=== PATIENT | female | born 1970 | race Caucasian/White ===

== ENCOUNTER 2017-05-31 09:38 | Emergency (ER) | payer MEDICARE, MEDICAID ==
[~2017-05-31] VITALS: Ht 165.1 cm; Wt 57.0 kg
[~2017-05-31 09:38] MED LIST: BUTA1CAP PO; CALC1TAB87 PO; DIAZ10 PO; DICY10 PO; DULO20 PO; EXCETAB PO; LISI10TA3 PO; LYRI150C PO; MONT10TA2 PO; MORP1TAB24 PO; PROM25TA5 PO; PROP10TA6 PO; RISP1 PO; TIZA4CAP3 PO; ZOFR8TAB4 SL
[2017-05-31 09:41] VITALS: BP 145/94; PULSE 76; RESP 15; TEMP 98.4; O2SAT 96
[2017-05-31] MEDS ORDERED: MORP1TAB26 PO (10:06)
[2017-05-31] MEDS ORDERED: LYRI200C PO (10:06)
[2017-05-31] MEDS ORDERED: PROM1SUP7 RECTAL (10:06)
--- NOTE | 2017-05-31 11:29 | PD ---
HPI Chief Complaint: Chest Pain Time Seen by Provider: 11:29 Travel History International Travel<30 days: No Contact w/Intl Traveler<30days: No Traveled to known affect area: No History of Present Illness HPI 46-year-old female presents the emergency Department with multiple complaints including question broken left great toe, history of upper respiratory symptoms including cough, sore throat, head congestion, and chest congestion. She states she was improving and now has been worsening in the last couple of days. Patient states vomiting last week. But none recently. No diarrhea. No abdominal pain. She also concerned about her blood pressure. Sensorimotor blood pressure low she has no headache. Patient states she was a smoker but recently quit. Patient is allergic to epinephrine, erythromycin, and penicillin. PFSH Past Medical History Arthritis: Yes Asthma: No Autoimmune Disease: No Blood Disorders: Yes (PORPHYRIA ) Anxiety: Yes Depression: Yes Heart Rhythm Problems: Yes Cancer: No Cardiovascular Problems: Yes (SLIGHT MITRAL VALVE REGURGITATION) High Cholesterol: No Chemotherapy: No Chest Pain: Yes Congestive Heart Failure: No COPD: No Cerebrovascular Accident: Yes (STROKE 2004, TIA 2013) Diabetes: No Diminished Hearing: No Endocrine: No Gastrointestinal Disorders: Yes (REFLUX, DISFUNCTION OF SPHINCTER OF JACINTA) GERD: Yes Glaucoma: No Genitourinary: No Headaches: Yes (CHRONIC) Hepatitis: No Hiatal Hernia: Yes Herniated Disk: Yes (C5-7) Hypertension: Yes Immune Disorder: No Implanted Vascular Access Dvce: No Kidney Stones: No Medical other: Yes (PORPHYRIA-INTERMITTENT ACUTE EPISODES CAUSING NAUSEA VOMITING) Musculoskeletal: Yes (TRELL SHOULDER PAIN, CERVICAL HERNIATED DISCSX2, HERNIATED L5-S1) Neurologic: Yes (STROKE 2004, TIA 2013, MIGRAINES, BRACHIAL ISSUES LEFT SHOULDER) Psychiatric: Yes (ANXIETY) Reproductive: Yes (ENDOMETRIOSIS hysterectomy 11/02/15) Respiratory: Yes (ASTHMA) Immunizations Current: Yes Migraines: Yes Myocardial Infarction: Yes (OCTOBER - 2004) Radiation Therapy: No Renal Failure: No Seizures: Yes (LAST SEIZURE 2006) Sickle Cell Disease: No Sleep Apnea: No Thyroid Disease: No Ulcer: No PNEUMOCCOCAL Vaccine (Year): 2010 ?: Unknown Menopausal: Yes : 4 Para: 4 Miscarriage: 0 : 0 Tubal Ligation: Yes (2002) Past Surgical History Abdominal Surgery: Yes (CHOLECYSTECTOMY 2004) AICD: No Appendectomy: No Body Medical Devices: SCREWS LEFT RING FINTURE, CERVICAL HARDWARE Cardiac Surgery: No Section: Yes (4) Cholecystectomy: Yes (2004) Ear Surgery: No Endocrine Surgery: No Eye Surgery: Yes ( CHILD) Genitourinary Surgery: No Gynecologic Surgery: Yes (C SECTION X4, TUBAL LIGATION 2002) Hysterectomy: Yes (11/06/15) Joint Replacement: No Neurologic Surgery: Yes (ANTERIOR C5-C6,C6-7 Discectomy and Fusion,) Oral Surgery: No Pacemaker: No Thoracic Surgery: No Other Surgery: Yes (hysterectomy 11/02/15) Social History Alcohol Use: No Tobacco Use: No Substance Use: No Allergies-Medications (Allergen,Severity, Reaction): Coded Allergies: erythromycin base (Unverified Allergy, Severe, Anaphylaxis, 05/31/17) ANAPHYLAXIS penicillin G (Unverified Allergy, Severe, Anaphylaxis, 05/31/17) ANAPHYLAXIS epinephrine (Unverified Adverse Reaction, Severe, STATES SHOULD AVOID , ) PT HAD STROKE AFTER GETTING EPINEPRINE IN ER Reported Meds & Prescriptions Reported Meds & Active Scripts Active Prednisone 20 Mg Tab 20 Mg PO BID 5 Days Ventolin Hfa 18 GM Inh (Albuterol Sulfate) 90 Mcg/Act Aer 2 Puff INH Q4-6H PRN Azithromycin 250 Mg Tab 250 Mg PO DIRECTED Take 2 tabs (500 mg) on day 1 then 1 tab daily x 4 days. Reported Phenergan Supp (Promethazine HCl) 25 Mg Supp 25 Mg RECTAL Q4H PRN Lyrica (Pregabalin) 200 Mg Cap 200 Mg PO TID Morphine ER (Morphine Sulfate) 60 Mg Tab 60 Mg PO TID Lyrica (Pregabalin) 150 Mg Cap 150 Mg PO TID Tizanidine (Tizanidine HCl) 4 Mg Cap 4 Mg PO TID Zofran Odt (Ondansetron Odt) 8 Mg Tab 8 Mg SL Q12HR Valium (Diazepam) 10 Mg Tab 10 Mg PO BID PRN Singulair (Montelukast Sodium) 10 Mg Tab 10 Mg PO HS Propranolol (Propranolol HCl) 10 Mg Tab 10 Mg PO DAILY Lisinopril 10 Mg Tab 10 Mg PO BID Fioricet (Qwggzyhybt-Ccikidvbskaag-Wsubqvti) 50-300-40 Mg Cap 1 Cap PO Q4H PRN Bentyl (Dicyclomine HCl) 10 Mg Cap 10 Mg PO QID Review of Systems Except as stated in HPI: all other systems reviewed are Neg General / Constitutional: Positive: Fever, Chills (last week.) Eyes: No: Visual changes HENT: Positive: Headaches, Sore Throat, Rhinitis, Rhinorrhea, Congestion, Earache, No: Vertigo, Lightheadedness, Nosebleed, Neck Stiffness, Neck Pain, Masses, Gingival Bleeding, Dental Difficulties, Ear Discharge Cardiovascular: No: Chest Pain or Discomfort Respiratory: Positive: Cough, Shortness of Breath, Wheezing, No: Sneezing, Orthopnea, Hemoptysis, Night Sweats, Pleuritic Pain Gastrointestinal: Positive: Nausea (last week), Vomiting (last week), Loss of Appetite, No: Diarrhea, Abdominal Pain Genitourinary: No: Urgency, Frequency, Dysuria, Pelvic Pain, Flank Pain, Discharge Musculoskeletal: No: Pain Skin: No Rash Neurologic: No: Weakness Psychiatric: No: Depression Endocrine: No: Polydipsia Hematologic/Lymphatic: No: Easy Bruising Physical Exam Narrative GENERAL: Patient appears somewhat anxious but otherwise no acute distress. SKIN: Warm and dry. Color. Normal turgor. Patient has bruising along the left base of the great toe. HEAD: Atraumatic. Normocephalic. EYES: Pupils equal and round. No scleral icterus. No injection or drainage. ENT: No nasal bleeding or discharge. Mucous membranes pink and moist. Pharynx shows some mild cobblestoning and erythematous but no significant findings otherwise. TMs are clear bilaterally. No sinus tenderness to palpation. NECK: Trachea midline. Supple nontender without lymphadenopathy. CARDIOVASCULAR: Regular rate and rhythm. RESPIRATORY: No accessory muscle use. Coarse breath sounds to auscultation. Breath sounds equal bilaterally. GASTROINTESTINAL: Abdomen soft, non-tender, nondistended. Hepatic and splenic margins not palpable. MUSCULOSKELETAL: Extremities without clubbing, cyanosis, or edema. No obvious deformities. Patient is tenderness at the left great toe base. No deformity. NEUROLOGICAL: Awake and alert. No obvious cranial nerve deficits. Motor grossly within normal limits. Five out of 5 muscle strength in the arms and legs. Normal speech. PSYCHIATRIC: Appropriate mood and affect; insight and judgment normal. Data Data Last Documented VS Vital Signs Date Time Temp Pulse Resp B/P (MAP) Pulse Ox O2 Delivery O2 Flow Rate FiO2 05/31/17 12:18 65 14 134/84 (101) 98 Room Air 05/31/17 09:41 98.4 Orders Orders Electrocardiogram (05/31/17 11:34) B-Type Natriuretic Peptide (05/31/17 11:34) Ckmb (Isoenzyme) Profile (05/31/17 11:34) Complete Blood Count With Diff (05/31/17 11:34) Comprehensive Metabolic Panel (05/31/17 11:34) Magnesium (Mg) (05/31/17 11:34) Prothrombin Time / Inr (Pt) (05/31/17 11:34) Act Partial Throm Time (Ptt) (05/31/17 11:34) Troponin I (05/31/17 11:34) Chest, Single Ap (05/31/17 11:34) Ecg Monitoring (05/31/17 11:34) Bilateral Bp Monitoring (05/31/17 11:34) Iv Access Insert/Monitor (05/31/17 11:34) Oximetry (05/31/17 11:34) Oxygen Administration (05/31/17 11:34) Aspirin Chew (Aspirin Chew) (05/31/17 11:45) Sodium Chloride 0.9% Flush (Ns Flush) (05/31/17 11:45) Metoprolol Tartrate Inj (Lopressor Inj) (05/31/17 11:45) Sodium Chlorid 0.9% 500 Ml Inj (Ns 500 M (05/31/17 11:45) Foot, Complete (Tom3dcv) (05/31/17 11:34) Ice/Cold Pack (05/31/17 11:34) Lactic Acid (05/31/17 11:34) Lipase (05/31/17 11:34) CKMB (05/31/17 11:45) CKMB% (05/31/17 11:45) Splint Or Brace Apply/Monitor (05/31/17 13:33) Labs Laboratory Tests Test 05/31/17 11:45 05/31/17 12:00 White Blood Count 12.4 TH/MM3 Red Blood Count 4.39 MIL/MM3 Hemoglobin 13.6 GM/DL Hematocrit 40.4 % Mean Corpuscular Volume 91.9 FL Mean Corpuscular Hemoglobin 31.0 PG Mean Corpuscular Hemoglobin Concent 33.7 % Red Cell Distribution Width 12.8 % Platelet Count 382 TH/MM3 Mean Platelet Volume 8.8 FL Neutrophils (%) (Auto) 73.0 % Lymphocytes (%) (Auto) 16.6 % Monocytes (%) (Auto) 7.8 % Eosinophils (%) (Auto) 1.9 % Basophils (%) (Auto) 0.7 % Neutrophils # (Auto) 9.1 TH/MM3 Lymphocytes # (Auto) 2.1 TH/MM3 Monocytes # (Auto) 1.0 TH/MM3 Eosinophils # (Auto) 0.2 TH/MM3 Basophils # (Auto) 0.1 TH/MM3 CBC Comment DIFF FINAL Differential Comment Prothrombin Time 10.7 SEC Prothromb Time International Ratio 1.0 RATIO Activated Partial Thromboplast Time 29.0 SEC Blood Urea Nitrogen 8 MG/DL Creatinine 0.85 MG/DL Random Glucose 93 MG/DL Total Protein 7.5 GM/DL Albumin 4.1 GM/DL Calcium Level 9.1 MG/DL Magnesium Level 2.6 MG/DL Alkaline Phosphatase 94 U/L Aspartate Amino Transf (AST/SGOT) 20 U/L Alanine Aminotransferase (ALT/SGPT) 22 U/L Total Bilirubin 0.6 MG/DL Sodium Level 133 MEQ/L Potassium Level 3.8 MEQ/L Chloride Level 98 MEQ/L Carbon Dioxide Level 25.5 MEQ/L Anion Gap 10 MEQ/L Estimat Glomerular Filtration Rate 72 ML/MIN Total Creatine Kinase 226 U/L Creatine Kinase MB 4.5 NG/ML Creatine Kinase MB % 2.0 % Troponin I LESS THAN 0.02 NG/ML B-Type Natriuretic Peptide 28 PG/ML Lipase 50 U/L Lactic Acid Level 0.9 mmol/L MDM Medical Decision Making Medical Screen Exam Complete: Yes Emergency Medical Condition: Yes Differential Diagnosis Pressure infection. Bronchitis. Pneumonia. Cardiac syndrome. Possible fractured left toe. Narrative Course Patient is felt to be medically stable at time of exam. Chest x-ray and x-ray of the left toes ordered. EKG is performed showing normal sinus rhythm without ST changes. Laboratory medically CBC, CMP, lactic acid, cardiac panel. Chest x-ray shows no acute findings. X-ray of the left foot shows no acute findings per radiologist. All labs are currently within normal limits except for slight leukocytosis of 12.4, creatinine of 226, CK-MB of 4.5, troponin is negative at 0.02. BNP is normal at 28. Lactic acid is normal 0.9. Lipase is normal at 50. Sodium slightly low at 133. Patient will be discharged home on azithromycin Dosepak as directed. Patient also given prednisone 20 mg twice a day 5 days. Patient is given albuterol metered-dose inhaler 2 puffs every 4-6 hours when necessary. Patient is to follow-up with her primary care physician if symptoms continue to worsen as needed. Postop shoe is placed on the left foot for comfort. Diagnosis Primary Impression: Acute wheezy bronchitis Additional Impression: Contusion of left foot including toes Qualified Codes: S90.32XA - Contusion of left foot, initial encounter; S90.122A - Contusion of left lesser toe(s) without damage to nail, initial encounter Referrals: Primary Care Physician Patient Instructions: General Instructions Additional Instructions: Patient will be discharged home on azithromycin Dosepak as directed. Patient also given prednisone 20 mg twice a day 5 days. Patient is given albuterol metered-dose inhaler 2 puffs every 4-6 hours when necessary. Patient is to follow-up with her primary care physician if symptoms continue to worsen as needed. Postop shoe is placed on the left foot for comfort. Med/Other Pt SpecificInfo: Prescription(s) given Scripts Prednisone (Prednisone) 20 Mg Tab 20 MG PO BID for 5 Days, #10 TAB 0 Refills Prov: Andrew Beltran MD 05/31/17 Albuterol 18 GM Inh (Ventolin Hfa 18 GM Inh) 90 Mcg/Act Aer 2 PUFF INH Q4-6H Y for SHORTNESS OF BREATH, #1 INHALER 0 Refills Prov: Andrew Beltran MD 05/31/17 Azithromycin (Azithromycin) 250 Mg Tab 250 MG PO DIRECTED for Infection, #6 TAB 0 Refills Take 2 tabs (500 mg) on day 1 then 1 tab daily x 4 days. Prov: Andrew Beltran MD 05/31/17 Disposition: 01 DISCHARGE HOME Condition: Stable Amos [place] May 31, 2017 11:29
[2017-05-31] MEDS ORDERED: SODIUM CHLORIDE 0.9% FLUSH 10 ML FLUSH IVF PRN (11:45)
[2017-05-31] MEDS ORDERED: SODIUM CHLORID 0.9% 500 ML INJ 500 ML IV ONE (11:45)
[2017-05-31] MEDS ORDERED: ASPIRIN 81 MG CHEW TAB PO ONE (11:45)
[2017-05-31] MEDS: METOPROLOL TARTRATE 5 MG/5 ML VIAL IVS SCH ×3 (11:50→11:55)
[2017-05-31 12:04] VITALS: BP_SYST 156; BP_SYST 159; BP_DIAS 101; BP_DIAS 103; PULSE 81; RESP 18; O2SAT 99
[2017-05-31 12:04] LABS: AUTOMATED NEUTROPHIL # 9.1 TH/MM3 (1.8-7.7); BASOPHIL # 0.1 TH/MM3 (0-0.2); BASOPHIL % 0.7 % (0.0-2.0); EOSINOPHIL # 0.2 TH/MM3 (0-0.4); EOSINOPHIL % 1.9 % (0.0-4.0); HEMATOCRIT 40.4 % (35.0-46.0); HEMO FLAGS DIFF FINAL; LYMPH % 16.6 % (9.0-44.0); LYMPHOCYTE # 2.1 TH/MM3 (1.0-4.8); MEAN CELL VOLUME 91.9 FL (80.0-100.0); MEAN CORPUSCULAR HGB CONC 33.7 % (32.0-36.0); MONO % 7.8 % (0.0-8.0); PLATELET COUNT 382 TH/MM3 (150-450); RED BLOOD COUNT 4.39 MIL/MM3 (4.00-5.30); RED CELL DISTRIBUTION WIDTH 12.8 % (11.6-17.2); WHITE BLOOD COUNT 12.4 TH/MM3 (4.0-11.0)
[2017-05-31 12:10] LABS: PROTHROMBIN TIME - PATIENT 10.7 SEC (9.8-11.6)
[2017-05-31 12:18] VITALS: BP 134/84; PULSE 65; RESP 14; O2SAT 98
--- NOTE | 2017-05-31 12:19 | RADRPT ---
EXAM DATE/TIME: 05/31/2017 12:16 [facility] COMPARISON: CHEST SINGLE AP, November 04, 2015, 5:06. INDICATIONS : Chest pain and cough. MEDICAL HISTORY : Hypertension. Gastroesophageal reflux disease. Hernia, hiatal. SURGICAL HISTORY : section. Tubal ligation.Hysterectomy.LAVH, lysis of adhesions, bilateral salpingectomy, and cystoscopy ENCOUNTER: Initial ACUITY: 2 weeks PAIN SCORE: 1/10 LOCATION: Bilateral chest FINDINGS: A single view of the chest demonstrates the lungs to be symmetrically aerated without evidence of mas s, infiltrate or effusion. Stable calcified granuloma in the left lower lung. The cardiomediastinal contours are unremarkable and stable. Osseous structures are intact and stable. No significant xiao es. CONCLUSION: No acute disease. No significant change has occurred. Lewis De La Rosa MD on May 31, 2017 at 12:17 Board Certified Radiologist. This report was verified electronically.
--- NOTE | 2017-05-31 12:20 | RADRPT ---
EXAM DATE/TIME: 05/31/2017 12:12 [facility] COMPARISON: No previous studies available for comparison. INDICATIONS : Left foot pain, first digit. Door closed on it. MEDICAL HISTORY : Hypertension. Gastroesophageal reflux disease. Hernia, hiatal. SURGICAL HISTORY : section. Tubal ligation.Hysterectomy.LAVH, lysis of adhesions, bilateral salpingectomy, and cystoscopy ENCOUNTER: Initial ACUITY: 2 days PAIN SCORE: 3/10 LOCATION: Left foot FINDINGS: Three view examination of the left foot demonstrates no soft tissue swelling, dislocation, or fractur e. The tarsal bones appear intact. The interphalangeal and metatarsophalangeal joints are intact. The calcaneus is intact. Bony mineralization is normal. CONCLUSION: Normal examination for a patient of this age. Lewis De La Rosa MD on May 31, 2017 at 12:18 Board Certified Radiologist. This report was verified electronically.
[2017-05-31 12:26] LABS: ANION GAP 10 MEQ/L (5-15); AST (GOT) 20 U/L (15-37); BICARBONATE 25.5 MEQ/L (21.0-32.0); BLOOD UREA NITROGEN 8 MG/DL (7-18); CHLORIDE 98 MEQ/L (98-107); GLOMERULAR FILTRATION RATE 72 ML/MIN (>89); MAGNESIUM 2.6 MG/DL (1.5-2.5); POTASSIUM 3.8 MEQ/L (3.5-5.1); SODIUM (NA) 133 MEQ/L (136-145)
[2017-05-31 12:27] LABS: ALT (GPT) 22 U/L (10-53)
[2017-05-31 12:31] LABS: ALKALINE PHOSPHATASE 94 U/L (45-117); CREATINE KINASE 226 U/L (26-192); TOTAL BILIRUBIN ADULT 0.6 MG/DL (0.2-1.0)
[2017-05-31 12:43] LABS: CKMB 4.5 NG/ML (0.5-3.6)
[2017-05-31] MEDS ORDERED: AZIT250T3 PO (13:35)
[2017-05-31] MEDS ORDERED: VENTAER INH (13:35)
[2017-05-31] MEDS ORDERED: PRED20 PO (13:35)
--- NOTE | 2017-05-31 21:14 | EKG ---
Date Performed: 05/31/2017 Time Performed: 10:00:53 PTAGE: 46 years EKG: Sinus rhythm WITH SINUS ARRHYTHMIA NORMAL ECG PREVIOUS TRACING : 12/08/2014 20.41 Compared to prior tracing no significant change DOCTOR: Reyes Monroy Interpretating Date/Time 05/31/2017 21:12:11
== END 2017-05-31 14:06 | disposition home or self-care (01) ==
LOC: NEPC 09:38
DX: J20.9 Acute bronchitis, unspecified (principal); S90.32XA Contusion of left foot, initial encounter; S90.122A Contusion of left lesser toe(s) without damage to nail, initial encounter; I10 Essential (primary) hypertension; X58.XXXA Exposure to other specified factors, initial encounter; Z79.899 Other long term (current) drug therapy; Z87.891 Personal history of nicotine dependence
CPT/HCPCS: 71010; 73630; 80053; 82550; 82552; 83605; 83690; 83735; 83880; 84484; 85025; 85610; 85730; 93005; 96361; 96374; 99285; J7040; L3260

== ENCOUNTER 2017-07-06 11:54 | Observation (INO) | payer MEDICARE, MEDICAID ==
[2017-07-06] VITALS (9 sets, daily range): BP systolic 90–144; BP diastolic 51–93; PULSE 73–83; RESP 16–18; TEMP 97.9–98.7; O2SAT 96–98
[~2017-07-06] VITALS: Ht 165.1 cm; Wt 55.0 kg
[~2017-07-06 11:54] MED LIST changes: +AZIT250T3 PO; -CALC1TAB87 PO; -DULO20 PO; -EXCETAB PO; +LYRI200C PO; -MORP1TAB24 PO; +MORP1TAB26 PO; +PRED20 PO; +PROM1SUP7 RECTAL; -PROM25TA5 PO; -RISP1 PO; +VENTAER INH
--- NOTE | 2017-07-06 12:29 | PD ---
HPI Chief Complaint: seizure Time Seen by Provider: 12:01 Travel History International Travel<30 days: No Contact w/Intl Traveler<30days: No Traveled to known affect area: No History of Present Illness HPI 46 years old female complains of recurrent seizures. Patient states that she had recurrent seizure for the past year. Patient has been seen by neurologist Dr. Rondon. Patient states that she had EEG done and she thought it was normal. Patient was put on seizure medication Briviact recently. patient's on Diastat when necessary. Patient states that she has headache. Patient denies any visual change. Patient denies any neck pain. Patient denied any chest pain or shortness of breath. Patient denies abdominal pain. Patient denies any focal weakness or numbness of extremity. Patient states that she has multiple seizure episodes daily for the past week. Patient states that she had 4 seizure episodes this morning. Patient's friend states that patient's seizure is generalized tonic-clonic seizure lasting several minutes. No report of bladder or bowel incontinence. Patient has post ictal state after the seizure. PFSH Past Medical History Arthritis: Yes Asthma: No Autoimmune Disease: No Blood Disorders: Yes (PORPHYRIA ) Anxiety: Yes Depression: Yes Heart Rhythm Problems: Yes Cancer: No Cardiovascular Problems: Yes (SLIGHT MITRAL VALVE REGURGITATION) High Cholesterol: No Chemotherapy: No Chest Pain: Yes Congestive Heart Failure: No COPD: No Cerebrovascular Accident: Yes (STROKE 2004, TIA 2013) Diabetes: No Diminished Hearing: No Endocrine: No Gastrointestinal Disorders: Yes (REFLUX, DISFUNCTION OF SPHINCTER OF J[place]INTA) GERD: Yes Glaucoma: No Genitourinary: No Headaches: Yes (CHRONIC) Hepatitis: No Hiatal Hernia: Yes Herniated Disk: Yes (C5-7) Hypertension: Yes Immune Disorder: No Implanted Vascular Access Dvce: No Kidney Stones: No Musculoskeletal: Yes (TRELL SHOULDER PAIN, CERVICAL HERNIATED DISCSX2, HERNIATED L5-S1) Neurologic: Yes (STROKE 2004, TIA 2013, MIGRAINES, BRACHIAL ISSUES LEFT SHOULDER) Psychiatric: Yes (ANXIETY) Reproductive: Yes (ENDOMETRIOSIS hysterectomy 11/02/15) Respiratory: Yes (ASTHMA) Immunizations Current: Yes Migraines: Yes Myocardial Infarction: Yes (OCTOBER - 2004) Radiation Therapy: No Renal Failure: No Seizures: Yes (LAST SEIZURE 2006) Sickle Cell Disease: No Sleep Apnea: No Thyroid Disease: No Ulcer: No PNEUMOCCOCAL Vaccine (Year): 2010 Menopausal: Yes : 4 Para: 4 Miscarriage: 0 : 0 Tubal Ligation: Yes (2002) Past Surgical History Abdominal Surgery: Yes (CHOLECYSTECTOMY 2004) AICD: No Appendectomy: No Body Medical Devices: SCREWS LEFT RING FINTURE, CERVICAL HARDWARE Cardiac Surgery: No Section: Yes () Cholecystectomy: Yes (2004) Ear Surgery: No Endocrine Surgery: No Eye Surgery: Yes ( CHILD) Genitourinary Surgery: No Gynecologic Surgery: Yes (C SECTION X4, TUBAL LIGATION 2002) Hysterectomy: Yes (11/06/15) Joint Replacement: No Neurologic Surgery: Yes (ANTERIOR C5-C6,C6-7 Discectomy and Fusion,) Oral Surgery: No Pacemaker: No Thoracic Surgery: No Other Surgery: Yes (hysterectomy 11/02/15) Social History Alcohol Use: No Tobacco Use: No Substance Use: No Allergies-Medications (Allergen,Severity, Reaction): Coded Allergies: erythromycin base (Unverified Allergy, Severe, Anaphylaxis, 05/31/17) ANAPHYLAXIS penicillin G (Unverified Allergy, Severe, Anaphylaxis, 05/31/17) ANAPHYLAXIS epinephrine (Unverified Adverse Reaction, Severe, STATES SHOULD AVOID , ) PT HAD STROKE AFTER GETTING EPINEPRINE IN ER Reported Meds & Prescriptions Reported Meds & Active Scripts Active Prednisone 20 Mg Tab 20 Mg PO BID 5 Days Ventolin Hfa 18 GM Inh (Albuterol Sulfate) 90 Mcg/Act Aer 2 Puff INH Q4-6H PRN Azithromycin 250 Mg Tab 250 Mg PO DIRECTED Take 2 tabs (500 mg) on day 1 then 1 tab daily x 4 days. Reported Phenergan Supp (Promethazine HCl) 25 Mg Supp 25 Mg RECTAL Q4H PRN Lyrica (Pregabalin) 200 Mg Cap 200 Mg PO TID Morphine ER (Morphine Sulfate) 60 Mg Tab 60 Mg PO TID Lyrica (Pregabalin) 150 Mg Cap 150 Mg PO TID Tizanidine (Tizanidine HCl) 4 Mg Cap 4 Mg PO TID Zofran Odt (Ondansetron Odt) 8 Mg Tab 8 Mg SL Q12HR Valium (Diazepam) 10 Mg Tab 10 Mg PO BID PRN Singulair (Montelukast Sodium) 10 Mg Tab 10 Mg PO HS Propranolol (Propranolol HCl) 10 Mg Tab 10 Mg PO DAILY Lisinopril 10 Mg Tab 10 Mg PO BID Fioricet (Nsegousrnz-Enbsrapmttzyx-Jlgokbuv) 50-300-40 Mg Cap 1 Cap PO Q4H PRN Bentyl (Dicyclomine HCl) 10 Mg Cap 10 Mg PO QID Review of Systems General / Constitutional: No: Fever Eyes: No: Visual changes HENT: No: Headaches Cardiovascular: No: Chest Pain or Discomfort Respiratory: No: Shortness of Breath Gastrointestinal: No: Abdominal Pain Genitourinary: No: Dysuria Musculoskeletal: No: Pain Skin: No Rash Neurologic: No: Weakness Psychiatric: No: Depression Endocrine: No: Polydipsia Hematologic/Lymphatic: No: Easy Bruising Physical Exam Narrative GENERAL: Well-nourished, well-developed patient. SKIN: Focused skin assessment warm/dry. HEAD: Normocephalic. EYES: No scleral icterus. No injection or drainage. Pupils 2 mm equal reactive. NECK: Supple, trachea midline. No JVD or lymphadenopathy. No meningismus CARDIOVASCULAR: Regular rate and rhythm without murmurs, gallops, or rubs. RESPIRATORY: Breath sounds equal bilaterally. No accessory muscle use. GASTROINTESTINAL: Abdomen soft, non-tender, nondistended. MUSCULOSKELETAL: No cyanosis, or edema. BACK: Nontender without obvious deformity. No CVA tenderness. Neurologic exam normal. Data Data Last Documented VS Vital Signs Date Time Temp Pulse Resp B/P (MAP) Pulse Ox O2 Delivery O2 Flow Rate FiO2 07/06/17 12:18 97 Room Air 07/06/17 12:18 82 18 07/06/17 11:56 98.3 Orders Orders Complete Blood Count With Diff (07/06/17 12:12) Comprehensive Metabolic Panel (07/06/17 12:12) Urinalysis - C+S If Indicated (07/06/17 12:12) Thyroid Stimulating Hormone (07/06/17 12:12) Iv Access Insert/Monitor (07/06/17 12:12) Ecg Monitoring (07/06/17 12:12) Oximetry (07/06/17 12:12) Drug Screen, Random Urine (07/06/17 12:12) Sodium Chlor 0.9% 1000 Ml Inj (Ns 1000 M (07/06/17 12:15) Ketorolac Inj (Toradol Inj) (07/06/17 12:30) Labs Laboratory Tests Test 07/06/17 12:20 07/06/17 12:30 White Blood Count 9.6 TH/MM3 Red Blood Count 3.98 MIL/MM3 Hemoglobin 13.4 GM/DL Hematocrit 37.6 % Mean Corpuscular Volume 94.6 FL Mean Corpuscular Hemoglobin 33.8 PG Mean Corpuscular Hemoglobin Concent 35.7 % Red Cell Distribution Width 14.0 % Platelet Count 312 TH/MM3 Mean Platelet Volume 8.3 FL Neutrophils (%) (Auto) 52.1 % Lymphocytes (%) (Auto) 29.8 % Monocytes (%) (Auto) 12.4 % Eosinophils (%) (Auto) 4.9 % Basophils (%) (Auto) 0.8 % Neutrophils # (Auto) 5.0 TH/MM3 Lymphocytes # (Auto) 2.9 TH/MM3 Monocytes # (Auto) 1.2 TH/MM3 Eosinophils # (Auto) 0.5 TH/MM3 Basophils # (Auto) 0.1 TH/MM3 CBC Comment DIFF FINAL Differential Comment Blood Urea Nitrogen 11 MG/DL Creatinine 0.90 MG/DL Random Glucose 89 MG/DL Total Protein 7.6 GM/DL Albumin 3.8 GM/DL Calcium Level 8.3 MG/DL Alkaline Phosphatase 109 U/L Aspartate Amino Transf (AST/SGOT) 28 U/L Alanine Aminotransferase (ALT/SGPT) 22 U/L Total Bilirubin 0.2 MG/DL Sodium Level 138 MEQ/L Potassium Level 4.6 MEQ/L Chloride Level 103 MEQ/L Carbon Dioxide Level 28.8 MEQ/L Anion Gap 6 MEQ/L Estimat Glomerular Filtration Rate 67 ML/MIN Thyroid Stimulating Hormone 3rd Gen 1.710 uIU/ML Urine Color YELLOW Urine Turbidity CLEAR Urine pH 7.0 Urine Specific [place] 1.023 Urine Protein TRACE mg/dL Urine Glucose (UA) NEG mg/dL Urine Ketones NEG mg/dL Urine Occult Blood NEG Urine Nitrite NEG Urine Bilirubin NEG Urine Urobilinogen 2.0 MG/DL Urine Leukocyte Esterase NEG Urine RBC LESS THAN 1 /hpf Urine WBC 1 /hpf Urine Mucus MANY /lpf Microscopic Urinalysis Comment CULT NOT INDICATED Urine Opiates Screen NEG Urine Barbiturates Screen NEG Urine Amphetamines Screen NEG Urine Benzodiazepines Screen NEG Urine Cocaine Screen NEG Urine Cannabinoids Screen NEG MDM Medical Decision Making Medical Screen Exam Complete: Yes Emergency Medical Condition: Yes Interpretation(s) 1443 PM. CBC within normal limit. CMP within normal limit. Urine drug screen negative. UA is negative. Differential Diagnosis Differential diagnosis including recurrent seizures, electrolyte imbalance, arrhythmia. Narrative Course 46 years old female with recurrent seizures. Andrew Beltran MD Jul 06, 2017 12:29
[2017-07-06] MEDS ORDERED: KETOROLAC TROMETHAMINE 30 MG/ML (IVP) VIAL IV PUSH ONE (12:30)
[2017-07-06 12:35] LABS: BASOPHIL # 0.1 TH/MM3 (0-0.2); BASOPHIL % 0.8 % (0.0-2.0); EOSINOPHIL # 0.5 TH/MM3 (0-0.4); EOSINOPHIL % 4.9 % (0.0-4.0); HEMATOCRIT 37.6 % (35.0-46.0); HEMO FLAGS DIFF FINAL; LYMPH % 29.8 % (9.0-44.0); LYMPHOCYTE # 2.9 TH/MM3 (1.0-4.8); MEAN CELL VOLUME 94.6 FL (80.0-100.0); MEAN CORPUSCULAR HEMOGLOBIN 33.8 PG (27.0-34.0); MEAN CORPUSCULAR HGB CONC 35.7 % (32.0-36.0); MONO % 12.4 % (0.0-8.0); NEUT % 52.1 % (16.0-70.0); PLATELET COUNT 312 TH/MM3 (150-450); RED BLOOD COUNT 3.98 MIL/MM3 (4.00-5.30); WHITE BLOOD COUNT 9.6 TH/MM3 (4.0-11.0)
[2017-07-06 12:48] LABS: BLOOD, URINE NEG (NEG); COMMENT (UR) CULT NOT INDICATED; CULTURE IF INDICATED CULT NOT INDICATED; GLUCOSE,URINE NEG (NEG); KETONE, URINE NEG (NEG); MUCUS URINE MANY /lpf (OCC); NITRITE,URINE NEG (NEG); URINE COLOR YELLOW (YELLW/STRAW)
[2017-07-06 12:58] LABS: ALT (GPT) 22 U/L (10-53); ANION GAP 6 MEQ/L (5-15); AST (GOT) 28 U/L (15-37); BICARBONATE 28.8 MEQ/L (21.0-32.0); CHLORIDE 103 MEQ/L (98-107); GLOMERULAR FILTRATION RATE 67 ML/MIN (>89); POTASSIUM 4.6 MEQ/L (3.5-5.1); SODIUM (NA) 138 MEQ/L (136-145)
[2017-07-06 13:02] LABS: ALKALINE PHOSPHATASE 109 U/L (45-117); TOTAL BILIRUBIN ADULT 0.2 MG/DL (0.2-1.0)
[2017-07-06 13:03] LABS: BLOOD UREA NITROGEN 11 MG/DL (7-18)
[2017-07-06] MEDS ORDERED: ACETAMINOPHEN 325 MG TAB PO ONE (15:00)
[2017-07-06] MEDS ORDERED: GADODIAMIDE PF 287 MG/ML 10 ML VIAL (for RAD MRI) IVCONTRAST ONE (15:13)
[2017-07-06] MEDS ORDERED: ALBUTEROL SULFATE 90 MCG/ACT HFA 8 GM INHALER INH PRN (15:30)
--- NOTE | 2017-07-06 15:39 | HHI.HP ---
[facility] Sarah Sandoval D.O. Admission Diagnosis recurrent seizure Diagnoses: (1) Recurrent seizures Diagnosis: Principal Chief Complaint: recurrent seizures Travel History International Travel<30 Days: No Contact w/Intl Traveler <30 Da: No Traveled to Known Affected Are: No History of Present Illness patient is a 46 y/o female with history of seizure which was reportedly diagnosed about a year ago presented to ER with recurrent seizures. she's under the care of . she says that she was started on Briviact - however her seizure could not be controlled therefore the dose was increased two days ago. she says that she's having few seizures everyday. seizure was described as grand-mal. she says that she has some ' aura' before the seizures; ' she gets confused and her words are not coming out'. she had another episode of seizure prior to this presentation. she says that she talked to her neurologist today and was advised to come to [facility].she doesn't report any urinary incontinence or tongue-biting but complaining of some headache. of note she says that she was seen at [facility] a few days ago for the same reason; she says that she had a CT head done at the time but she didn't stay for further evaluation. Review of Systems Constitutional: DENIES: Fever, Weight loss, Chills, Night Sweats Eyes: DENIES: Blurred vision, Diplopia, Vision loss, Double Vision Ears, nose, mouth, throat: DENIES: Tinnitus, Vertigo, Throat pain, Epistaxis Respiratory: DENIES: Apneas, Cough, Snoring, Wheezing, Hemoptysis, Sputum production, Shortness of breath Cardiovascular: DENIES: Chest pain, Palpitations, Syncope, Dyspnea on Exertion , PND, Lower Extremity Edema, Orthopnea, Claudication Gastrointestinal: DENIES: Abdominal pain, Black stools, Bloody stools, Constipation, Diarrhea, Nausea, Vomiting, Difficulty Swallowing, Anorexia Genitourinary: DENIES: Urinary frequency, Urgency, Hematuria, Dysuria Musculoskeletal: DENIES: Joint pain, Muscle aches, Stiffness, Joint Swelling Integumentary: DENIES: Rash Neurologic: COMPLAINS OF: Headache, Seizures, DENIES: Abnormal gait, Localized weakness, Paresthesias, Speech Problems, Tremor, Poor Balance Psychiatric: DENIES: Anxiety, Confusion, Mood changes, Depression, Hallucinations, Agitation, Suicidal Ideation, Homicidal Ideation, Delusions Past Family Social History Past Medical History seizure hypertension asthma Past Surgical History / hysterectomy. Reported Medications Prednisone 20 Mg Tab 20 Mg PO BID 5 Days Ventolin Hfa 18 GM Inh (Albuterol Sulfate) 90 Mcg/Act Aer 2 Puff INH Q4-6H PRN Azithromycin 250 Mg Tab 250 Mg PO DIRECTED Take 2 tabs (500 mg) on day 1 then 1 tab daily x 4 days. Reported Phenergan Supp (Promethazine HCl) 25 Mg Supp 25 Mg RECTAL Q4H PRN Lyrica (Pregabalin) 200 Mg Cap 200 Mg PO TID Morphine ER (Morphine Sulfate) 60 Mg Tab 60 Mg PO TID Lyrica (Pregabalin) 150 Mg Cap 150 Mg PO TID Tizanidine (Tizanidine HCl) 4 Mg Cap 4 Mg PO TID Zofran Odt (Ondansetron Odt) 8 Mg Tab 8 Mg SL Q12HR Valium (Diazepam) 10 Mg Tab 10 Mg PO BID PRN Singulair (Montelukast Sodium) 10 Mg Tab 10 Mg PO HS Propranolol (Propranolol HCl) 10 Mg Tab 10 Mg PO DAILY Lisinopril 10 Mg Tab 10 Mg PO BID Fioricet (Uugvoazhfw-Tobiszircdbjg-Dchfiaog) 50-300-40 Mg Cap 1 Cap PO Q4H PRN Bentyl (Dicyclomine HCl) 10 Mg Cap 10 Mg PO QID Allergies: Coded Allergies: erythromycin base (Unverified Allergy, Severe, Anaphylaxis, 05/31/17) ANAPHYLAXIS penicillin G (Unverified Allergy, Severe, Anaphylaxis, 05/31/17) ANAPHYLAXIS epinephrine (Unverified Adverse Reaction, Severe, STATES SHOULD AVOID , ) PT HAD STROKE AFTER GETTING EPINEPRINE IN ER Active Ordered Medications Current Medications Sodium Chloride 1,000 ml @ 125 mls/hr Q8H IV ; Start 07/06/17 at 12:15 Ketorolac Tromethamine (Toradol Inj) 30 mg ONCE ONCE IV PUSH Last administered on 07/06/17t 13:35; Start 07/06/17 at 12:30; Stop 07/06/17 at 12 :31; Status DC Acetaminophen (Tylenol) 650 mg ONCE ONCE PO ; Start 07/06/17 at 15:00; Stop 07/06/17 at 15:15; Status DC Family History seizure ' on her mother's side'. Social History no smoking, drinking or illicit drug abuse. Physical Exam Vital Signs Vital Signs Date Time Temp Pulse Resp B/P (MAP) Pulse Ox O2 Delivery O2 Flow Rate FiO2 07/06/17 12:18 97 Room Air 07/06/17 12:18 82 18 97 Room Air 07/06/17 12:14 80 18 135/93 (107) 97 07/06/17 11:56 98.3 83 16 103/53 (70) 98 Physical Exam GENERAL: This is a well-nourished, well-developed patient, in no apparent distress. SKIN: No rashes, ecchymoses or lesions. Cool and dry. HEAD: Atraumatic. Normocephalic. No temporal or scalp tenderness. EYES: Pupils equal round and reactive. Extraocular motions intact. No scleral icterus. No injection or drainage. ENT: Nose without bleeding, purulent drainage or septal hematoma. Throat without erythema, tonsillar hypertrophy or exudate. Uvula midline. Airway patent. NECK: Trachea midline. No JVD or lymphadenopathy. Supple, nontender, no meningeal signs. CARDIOVASCULAR: Regular rate and rhythm without murmurs, gallops, or rubs. RESPIRATORY: Clear to auscultation. Breath sounds equal bilaterally. No wheezes , rales, or rhonchi. GASTROINTESTINAL: Abdomen soft, non-tender, nondistended. No hepato-splenomegaly , or palpable masses. No guarding. MUSCULOSKELETAL: Extremities without clubbing, cyanosis, or edema. No joint tenderness, effusion, or edema noted. No calf tenderness. Negative Homans sign bilaterally. NEUROLOGICAL: Awake and alert. Cranial nerves II through XII intact. Motor and sensory grossly within normal limits. Five out of 5 muscle strength in all muscle groups. Normal speech. Laboratory Laboratory Tests Test 07/06/17 12:20 07/06/17 12:30 White Blood Count 9.6 Red Blood Count 3.98 Hemoglobin 13.4 Hematocrit 37.6 Mean Corpuscular Volume 94.6 Mean Corpuscular Hemoglobin 33.8 Mean Corpuscular Hemoglobin Concent 35.7 Red Cell Distribution Width 14.0 Platelet Count 312 Mean Platelet Volume 8.3 Neutrophils (%) (Auto) 52.1 Lymphocytes (%) (Auto) 29.8 Monocytes (%) (Auto) 12.4 Eosinophils (%) (Auto) 4.9 Basophils (%) (Auto) 0.8 Neutrophils # (Auto) 5.0 Lymphocytes # (Auto) 2.9 Monocytes # (Auto) 1.2 Eosinophils # (Auto) 0.5 Basophils # (Auto) 0.1 CBC Comment DIFF FINAL Differential Comment Blood Urea Nitrogen 11 Creatinine 0.90 Random Glucose 89 Total Protein 7.6 Albumin 3.8 Calcium Level 8.3 Alkaline Phosphatase 109 Aspartate Amino Transf (AST/SGOT) 28 Alanine Aminotransferase (ALT/SGPT) 22 Total Bilirubin 0.2 Sodium Level 138 Potassium Level 4.6 Chloride Level 103 Carbon Dioxide Level 28.8 Anion Gap 6 Estimat Glomerular Filtration Rate 67 Thyroid Stimulating Hormone 3rd Gen 1.710 Urine Color YELLOW Urine Turbidity CLEAR Urine pH 7.0 Urine Specific Hurley 1.023 Urine Protein TRACE Urine Glucose (UA) NEG Urine Ketones NEG Urine Occult Blood NEG Urine Nitrite NEG Urine Bilirubin NEG Urine Urobilinogen 2.0 Urine Leukocyte Esterase NEG Urine RBC LESS THAN 1 Urine WBC 1 Urine Mucus MANY Microscopic Urinalysis Comment CULT NOT INDICATED Urine Opiates Screen NEG Urine Barbiturates Screen NEG Urine Amphetamines Screen NEG Urine Benzodiazepines Screen NEG Urine Cocaine Screen NEG Urine Cannabinoids Screen NEG Result Diagram: 07/06/17 1220 07/06/17 1220 Caprini VTE Risk Assessment Caprini VTE Risk Assessment: No/Low Risk (score <= 1) Caprini Risk Assessment Model Point Value = 1 Point Value = 2 Point Value = 3 Point Value = 5 Age 41-60 Minor surgery BMI > 25 kg/m2 Swollen legs Varicose veins or History of unexplained or recurrent spontaneous Oral contraceptives or hormone replacement Sepsis (< 1 month) Serious lung disease, including pneumonia (< 1 month) Abnormal pulmonary function Acute myocardial infarction Congestive heart failure (< 1 month) History of inflammatory bowel disease Medical patient at bed rest Age 61-74 Arthroscopic surgery Major open surgery (> 45 min) Laparoscopic surgery (> 45 min) Malignancy Confined to bed (> 72 hours) Immobilizing plaster cast Central venous access Age >= 75 History of VTE Family history of VTE Factor V Leiden Prothrombin [id number] Lupus anticoagulant Anticardiolipin antibodies Elevated serum homocysteine Heparin-induced thrombocytopenia Other congenital or acquired thrombophilia Stroke (< 1 month) Elective arthroplasty Hip, pelvis, or leg fracture Acute spinal cord injury (< 1 month) Prophylaxis Regimen Total Risk Factor Score Risk Level Prophylaxis Regimen 0-1 Low Early ambulation 2 Moderate Order ONE of the following: *Sequential Compression Device (SCD) *Heparin 5000 units SQ BID 3-4 Higher Order ONE of the following medications: *Heparin 5000 units SQ TID *Enoxaparin/Lovenox 40 mg SQ daily (WT < 150 kg, CrCl > 30 mL/min) *Enoxaparin/Lovenox 30 mg SQ daily (WT < 150 kg, CrCl > 10-29 mL/min) *Enoxaparin/Lovenox 30 mg SQ BID (WT < 150 kg, CrCl > 30 mL/min) AND/OR *Sequential Compression Device (SCD) 5 or more Highest Order ONE of the following medications: *Heparin 5000 units SQ TID (Preferred with Epidurals) *Enoxaparin/Lovenox 40 mg SQ daily (WT < 150 kg, CrCl > 30 mL/min) *Enoxaparin/Lovenox 30 mg SQ daily (WT < 150 kg, CrCl > 10-29 mL/min) *Enoxaparin/Lovenox 30 mg SQ BID (WT < 150 kg, CrCl > 30 mL/min) AND *Sequential Compression Device (SCD) Assessment and Plan Assessment and Plan A/P - recurrent seizures- states that she's been on Briviact with no improvement. seizure precautions/ ativan as needed/ obtain EEG and consult neurology. obtain the report of CT head that was done at [facility] few days ago. --hypertension; resume home meds -asthma with no exacerbation; resume home meds -chronic neck/back pain; continue pain control- Discussed Condition With ER physician and the patient. Tang Laureano MD Jul 06, 2017 15:39
[2017-07-06] MEDS ORDERED: ONDANSETRON HCL 4 MG/2 ML VIAL IV PUSH PRN (15:45)
[2017-07-06] MEDS: SODIUM CHLOR 0.9% 1000 ML INJ 1,000 ML IV SCH ×2 (16:39→20:15)
[2017-07-06] MEDS: PREGABALIN 75 MG CAP PO SCH (17:34)
[2017-07-06] MEDS ORDERED: PREGABALIN 100 MG CAP PO SCH (18:00)
[2017-07-06] MEDS: MONTELUKAST SODIUM 10 MG TAB PO SCH (21:00)
[2017-07-06] MEDS: LISINOPRIL 10 MG TAB PO SCH (21:00)
[2017-07-06] MEDS: ACETAMINOPHEN 325 MG TAB PO PRN (22:22)
[2017-07-07] VITALS (8 sets, daily range): BP systolic 92–145; BP diastolic 54–90; PULSE 66–110; RESP 16–18; TEMP 98–99.8; O2SAT 95–99
[2017-07-07] MEDS: SODIUM CHLOR 0.9% 1000 ML INJ 1,000 ML IV SCH ×3 (04:15→20:15)
[2017-07-07] MEDS: LORazepam 2 MG/ML VIAL IV PUSH PRN ×3 (04:45→10:04)
[2017-07-07] MEDS: ACETAMINOPHEN 325 MG TAB PO PRN ×2 (05:00→09:14)
[2017-07-07] MEDS ORDERED: BRIV1TAB7 PO (08:33)
[2017-07-07] MEDS: LISINOPRIL 10 MG TAB PO SCH (09:11)
[2017-07-07] MEDS: PROPRANOLOL HCL 10 MG TAB PO SCH (09:11)
[2017-07-07] MEDS: PREGABALIN 75 MG CAP PO SCH ×3 (09:11→17:21)
--- NOTE | 2017-07-07 09:56 | HHI.PR ---
Subjective Remarks Reports episodes of jaw clenching possible seizure activity overnight. Patient reports migraine headache, requesting Fioricet, or Excedrin. Denies any chest pain or shortness of breath. Denies any loss of bowel or bladder function. Patient states that she had a three-day home EEG which was negative for seizure activity. Has never had an EEG positive for seizure activity. Multiple medications have been tried. Objective Vital Signs Date Time Temp Pulse Resp B/P (MAP) Pulse Ox O2 Delivery O2 Flow Rate FiO2 07/07/17 08:33 98.4 73 16 116/63 (80) 99 07/07/17 05:25 92/64 (73) 07/07/17 03:42 98.7 66 18 98/54 (69) 95 07/06/17 23:35 98.7 74 18 98/51 (67) 97 07/06/17 22:25 116/66 (83) 07/06/17 20:15 118/78 (91) Automatic Cuff 07/06/17 19:46 98.4 82 18 90/53 (65) 96 07/06/17 17:07 07/06/17 17:02 97.9 73 18 135/88 (104) 97 07/06/17 15:00 82 18 144/81 (102) 96 Room Air 07/06/17 12:18 97 Room Air 07/06/17 12:18 82 18 97 Room Air 07/06/17 12:14 80 18 135/93 (107) 97 07/06/17 11:56 98.3 83 16 103/53 (70) 98 I/O 07/06/17 07/06/17 07/06/17 07/07/17 07/07/17 07/07/17 07:00 15:00 23:00 07:00 15:00 23:00 Output Total 200 ml Balance -200 ml Output Urine Total 200 ml # Voids 2 Result Diagram: 07/06/17 1220 07/06/17 1220 Objective Remarks GENERAL: Patient appears comfortable on exam. Alert, oriented. SKIN: Warm and dry. HEAD: Normocephalic. EYES: No scleral icterus. No injection or drainage. NECK: Supple, trachea midline CARDIOVASCULAR: Regular rate and rhythm without murmurs, gallops, or rubs. RESPIRATORY: Breath sounds equal bilaterally. No accessory muscle use. GASTROINTESTINAL: Abdomen soft, non-tender, nondistended. MUSCULOSKELETAL: No cyanosis, or edema. BACK: Nontender without obvious deformity. No CVA tenderness. A/P Assessment and Plan //recurrent seizures- states that she's been on Briviact with no improvement. seizure precautions/ ativan as needed/ obtain EEG and consult neurology. obtain the report of CT head that was done at [facility] few days ago. = Continue Ativan as needed for seizures. Patient with multiple negative EEGs in the past. I question these are real seizures versus pseudoseizures. Have discussed with Dr. Garcia, who will see the patient. //hypertension. Blood pressure low with systolics in the 90s. Will decrease lisinopril 5 mg only once a day. Continue to monitor. //asthma with no exacerbation. Continue home meds. //chronic neck/back pain; continue pain control-avoid caffeine. Patient says that aspirin and Tylenol do not help, she needs caffeine. We'll continue to avoid caffeine. Avoid excessive narcotics with low blood pressure. Discharge Planning Pending EEG. Pending neurology clearance. Mendoza Kelly MD Jul 07, 2017 09:56
[2017-07-07] MEDS: ONDANSETRON HCL 4 MG/2 ML VIAL IV PUSH PRN ×3 (10:08→21:28)
[2017-07-07] MEDS ORDERED: FOSPHENYTOIN INJ 1,000 MGPE in SODIUM CHLORIDE 0.9% INJ 50 ML IV ONE (12:00)
--- NOTE | 2017-07-07 12:13 | MB ---
cc: [facility] DATE OF CONSULTATION: 07/07/2017 REASON FOR CONSULTATION: Frequent seizures. HISTORY OF PRESENT ILLNESS Ms. Waterman is a 46 year-old female who has a long history of migraine headaches, who has been having seizures she states for the past year. She is a patient of Dr. Rondon and was started on Briviact, initially 50 milligrams b.i.d. About two days ago the dose was increased to 100 milligrams b.i.d. since she continued having seizures. She states she has seizures where she blanks out, at times will have grand mal seizure activity with stiffening of all four extremities. She states she is not aware of this happening. She did not have any urinary incontinence, no tongue biting. Following the episode she states she has some mild confusion. The patient has had several episodes of "seizures" here in the ER. According to the nursing staff, she has stiffening of her arms and legs. She is anxious during them, is able to talk during the episodes. She does relate seizures being somewhat stress related. PAST MEDICAL HISTORY: As noted above, she has a history of migraine headaches, hypertension, asthma. MEDICATIONS: 1. Prinivil 5 milligrams daily. 2. Inderal 10 milligrams daily. 3. Lyrica 150 milligrams t.i.d. 4. Ativan p.r.n. 5. Zofran p.r.n. 6. ProAir nebulizer. 7. Tylenol p.r.n. NEUROLOGICAL EXAMINATION: VITAL SIGNS: Blood pressure is 145/82, pulse 73, respiratory rate 16, temperature 98 degrees. Higher cortical function, she is lethargic having received Ativan but she is arousable easily. She follows commands. She is oriented x3, speech is fluent, recall normal. Cranial nerves intact. Motor exam: There is 5/5 in all groups. There is no drift. Reflexes symmetric. LABORATORY DATA White count is 9600, hemoglobin 13.4, hematocrit 37%, platelet count 312,000. Sodium is 138, potassium 4.64, chloride 103, CO2 28.8, BUN is 11, creatinine 0.9. GFR 67, glucose 89, calcium 8.3, AST 28, ALT 22, TSH 1.7. Tox screen negative. Urinalysis, pH is 7, specific gravity 1.023. IMPRESSION Intermittent episodes possible seizure, although pseudoseizure is also a possibility given the description. RECOMMENDATIONS She states she has been on other seizure medication. She does not recall being on Dilantin. At the present time would recommend starting her on Cerebyx with a loading dose and she has had many episodes of 1 gram, continue 100 mg t.i.d. We will review MRI of the brain as well as an EEG. If she continues having episodes despite adequate anticonvulsant levels consider referral to a center where EEG telemetry could be conducted to rule out pseudoseizures. Thank you for asking us to see this patient. MD COLEMAN Monahan/JANELL /11:55 AM /12:04 PM
[2017-07-07 13:42] LABS: BETA HCG QUANT LESS THAN 1 MIU/ML (0-5)
--- NOTE | 2017-07-07 15:09 | MG ---
cc: NICOLÁS RAMIREZ Lab No: [id number] Date: 07/07/2017 Age: Sex: F Race: TECHNIQUE 17-channel EEG. DESCRIPTION: The background rhythm is a symmetrical alpha rhythm, frequency is 8 Hz amplitude, about 30-40 microvolts. There is mild slowing due to drowsiness in the theta range. There are no lateralizing features seen. There are no epileptiform discharges present. The patient does appear to be asleep during the tracing with vertex sharp waves and sleep spindles. Photic results in a normal driving response. INTERPRETATION Normal EEG. MD COLEMAN Monahan/LANEL /2:50 PM /3:12 PM
[2017-07-07] MEDS: MORPHINE SULFATE 30 MG CONTROLLED RELEASE TAB PO SCH ×2 (17:21→22:52)
--- NOTE | 2017-07-07 17:45 | RADRPT ---
EXAM DATE/TIME: 07/07/2017 15:40 [place] COMPARISON: CTA BRAIN W 3D RECON, November 27, 2013, 11:01. INDICATIONS : Seizures. CONTRAST: 10 cc Omniscan (gadodiamide) IV MEDICAL HISTORY : Hypertension. Stroke SURGICAL HISTORY : section. Fusion, cervical. Cholecystectomy. ENCOUNTER: Initial ACUITY: 1 day PAIN SCORE: 0/10 LOCATION: cranial TECHNIQUE: Multiplanar, multisequence MRI of the brain was performed both prior to and following the administrat ion of paramagnetic contrast. FINDINGS: CEREBRUM: The ventricles are normal for age. No evidence of midline shift, mass lesion, hemorrhage or acute in farction. No extraaxial fluid collections are seen. The pituitary gland and suprasellar cistern are normal in configuration. WHITE MATTER: No significant signal abnormalities are seen in the white matter. POSTERIOR FOSSA: The cerebellum and brainstem are intact. The 4th ventricle is midline. The cerebellopontine angle is unremarkable. The cerebellar tonsils are normal in position. DIFFUSION IMAGING: No focal areas of restricted diffusion are seen. No evidence of acute infarction. EXTRACRANIAL: The visualized portions of the orbits and paranasal sinuses are unremarkable. POST-CONTRAST: No abnormal areas of parenchymal or dural enhancement. No evidence of blood-brain barrier breakdown. CONCLUSION: 1. No acute findings. Leo Laurent MD on July 07, 2017 at 17:39 Board Certified Radiologist. This report was verified electronically.
[2017-07-07] MEDS: MONTELUKAST SODIUM 10 MG TAB PO SCH (21:28)
[2017-07-08] MEDS: FOSPHENYTOIN SODIUM 100 MG PE/2 ML VIAL IV SCH ×3 (00:02→14:05)
[2017-07-08] MEDS: ACETAMINOPHEN 325 MG TAB PO PRN (03:22)
[2017-07-08] MEDS: SODIUM CHLOR 0.9% 1000 ML INJ 1,000 ML IV SCH ×2 (04:15→08:54)
[2017-07-08 05:05] VITALS: BP 122/82; PULSE 120; RESP 18; TEMP 98.1; O2SAT 95
[2017-07-08] MEDS: MORPHINE SULFATE 30 MG CONTROLLED RELEASE TAB PO SCH ×2 (06:33→14:03)
[2017-07-08 08:46] VITALS: BP 118/92; PULSE 111; RESP 18; TEMP 98.6; O2SAT 95
[2017-07-08] MEDS: PROPRANOLOL HCL 10 MG TAB PO SCH (08:48)
[2017-07-08] MEDS ORDERED: LISINOPRIL 5 MG TAB PO SCH (09:00)
[2017-07-08] MEDS: ONDANSETRON HCL 4 MG/2 ML VIAL IV PUSH PRN (09:22)
--- NOTE | 2017-07-08 09:36 | HHI.PR ---
Subjective Remarks Reports episodes of jaw clenching possible seizure activity overnight. Patient reports migraine headache, requesting Fioricet, or Excedrin. Denies any chest pain or shortness of breath. Denies any loss of bowel or bladder function. Patient states that she had a three-day home EEG which was negative for seizure activity. Has never had an EEG positive for seizure activity. Multiple medications have been tried. Objective Vital Signs Date Time Temp Pulse Resp B/P (MAP) Pulse Ox O2 Delivery O2 Flow Rate FiO2 07/08/17 08:46 98.6 111 18 118/92 (101) 95 07/08/17 05:05 98.1 120 18 122/82 (95) 95 07/07/17 23:28 98.0 110 18 97/55 (69) 95 07/07/17 19:51 98.1 106 18 121/88 (99) 96 07/07/17 17:43 99.8 99 18 123/90 (101) 98 07/07/17 11:47 98.3 81 16 109/71 (84) 98 07/07/17 09:55 145/82 (103) I/O 07/07/17 07/07/17 07/07/17 07/08/17 07/08/17 07/08/17 07:00 15:00 23:00 07:00 15:00 23:00 Intake Total 1070 ml Balance 1070 ml Intake IV Total 1070 ml # Voids 1 3 Result Diagram: 07/06/17 1220 07/06/17 1220 Objective Remarks GENERAL: Patient appears comfortable on exam. Alert, oriented. SKIN: Warm and dry. HEAD: Normocephalic. Patient does have right lower jaw tenderness with slight swelling. Very poor dentition. No purulence. EYES: No scleral icterus. No injection or drainage. NECK: Supple, trachea midline CARDIOVASCULAR: Regular rate and rhythm without murmurs, gallops, or rubs. RESPIRATORY: Breath sounds equal bilaterally. No accessory muscle use. GASTROINTESTINAL: Abdomen soft, non-tender, nondistended. MUSCULOSKELETAL: No cyanosis, or edema. BACK: Nontender without obvious deformity. No CVA tenderness. A/P Assessment and Plan //recurrent seizures- states that she's been on Briviact with no improvement. seizure precautions/ ativan as needed/ obtain EEG and consult neurology. obtain the report of CT head that was done at [facility] few days ago. = Continue Ativan as needed for seizures. Patient with multiple negative EEGs in the past. I question these are real seizures versus pseudoseizures. Have discussed with Dr. Garcia, who will see the patient. = 07/08. EEG negative. Started on Cerebyx. Psychiatry consult pending. Appreciate psychiatry and neurology assistance. //hypertension. Blood pressure low with systolics in the 90s. Will decrease lisinopril 5 mg only once a day. Continue to monitor. = Blood pressure acceptable. Continue to monitor //Right lower jaw tooth infection. We'll order antibiotics. Recommend close follow-up with dentist as outpatient. //asthma with no exacerbation. Continue home meds. //chronic neck/back pain; continue pain control-avoid caffeine. Patient says that aspirin and Tylenol do not help, she needs caffeine. We'll continue to avoid caffeine. Avoid excessive narcotics with low blood pressure. Discharge Planning pending neurology clearance. Psychiatry consult pending. Mendoza Kelly MD Jul 08, 2017 09:36
[2017-07-08] MEDS: PREGABALIN 75 MG CAP PO SCH ×3 (10:00→18:04)
[2017-07-08 10:49] LABS: AUTOMATED NEUTROPHIL # 10.3 TH/MM3 (1.8-7.7); BASOPHIL # 0.1 TH/MM3 (0-0.2); BASOPHIL % 0.4 % (0.0-2.0); EOSINOPHIL % 0.1 % (0.0-4.0); HEMATOCRIT 39.4 % (35.0-46.0); HEMO FLAGS DIFF FINAL; LYMPH % 10.1 % (9.0-44.0); LYMPHOCYTE # 1.3 TH/MM3 (1.0-4.8); MEAN CELL VOLUME 93.6 FL (80.0-100.0); MEAN CORPUSCULAR HEMOGLOBIN 31.8 PG (27.0-34.0); MONO % 11.4 % (0.0-8.0); PLATELET COUNT 278 TH/MM3 (150-450); RED BLOOD COUNT 4.22 MIL/MM3 (4.00-5.30); RED CELL DISTRIBUTION WIDTH 13.5 % (11.6-17.2); WHITE BLOOD COUNT 13.1 TH/MM3 (4.0-11.0)
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
[2017-07-08 11:06] LABS: ALT (GPT) 36 U/L (10-53); ANION GAP 6 MEQ/L (5-15); AST (GOT) 31 U/L (15-37); BICARBONATE 28.8 MEQ/L (21.0-32.0); BLOOD UREA NITROGEN 7 MG/DL (7-18); CHLORIDE 102 MEQ/L (98-107); GLOMERULAR FILTRATION RATE 90 ML/MIN (>89); POTASSIUM 4.4 MEQ/L (3.5-5.1); SODIUM (NA) 137 MEQ/L (136-145)
[2017-07-08 11:09] LABS: ALKALINE PHOSPHATASE 117 U/L (45-117); TOTAL BILIRUBIN ADULT 0.4 MG/DL (0.2-1.0)
[2017-07-08] MEDS: CLINDAMYCIN 150 MG CAP PO SCH ×2 (11:20→18:04)
[2017-07-08 12:00] VITALS: BP 110/79; PULSE 90; RESP 18; TEMP 99; O2SAT 95
--- NOTE | 2017-07-08 15:07 | HHI.PR ---
Review/Management Diagnosis seizures vs pseudoseizures--stable without recurrence Plan change cerebyx to po dilantin at higher dose 200 mg bid since level was 8 today Ok from neuro standpoint to discharge on dilantin 200 mg bid. d/c breviact. follow up with Dr Rondon to check dilantin level in 2 weeks Diagnosis/Plan: Subjective Subjective Comments No acute events reported She states she has had no recurrent sz-like episodes since on cerebyx. Active Medications Current Medications Medications (Trade) Dose Ordered Sig/Last Route Start Time Stop Time Status Last Admin Sodium Chloride 1,000 ml @ 125 mls/hr Q8H IV 07/06/17 12:15 07/08/17 08:54 (Ativan Inj) 1 mg Q15M PRN IV PUSH 07/06/17 15:30 07/07/17 10:04 (Zofran Inj) 4 mg Q8HR PRN IV PUSH 07/06/17 15:30 07/08/17 09:22 (Tylenol) 650 mg Q4H PRN PO 07/06/17 15:30 07/08/17 03:22 (Proair Hfa Inh) 2 puff Q6HR PRN INH 07/06/17 15:30 (Singulair) 10 mg HS PO 07/06/17 21:00 07/07/17 21:28 (Lyrica) 150 mg TID PO 07/06/17 18:00 07/08/17 14:02 (Inderal) 10 mg DAILY PO 07/07/17 09:00 07/08/17 08:48 (Prinivil) 5 mg DAILY PO 07/08/17 09:00 07/08/17 08:48 (Cerebyx Inj) 100 mgpe Q8H IV 07/07/17 22:00 07/08/17 14:05 (Oramorph Sr) 30 mg Q8HR PO 07/07/17 16:45 07/08/17 14:03 (Cleocin) 300 mg Q6HR PO 07/08/17 12:00 07/08/17 11:20 Allergies Allergies Coded Allergies erythromycin base (Unverified Allergy, Severe, Anaphylaxis, 05/31/17) penicillin G (Unverified Allergy, Severe, Anaphylaxis, 05/31/17) epinephrine (Unverified Adverse Reaction, Severe, STATES SHOULD AVOID , ) Exam I&O / VS Vital Signs Date Time Temp Pulse Resp B/P (MAP) Pulse Ox O2 Delivery O2 Flow Rate FiO2 07/08/17 12:00 99.0 90 18 110/79 (89) 95 Manual Cuff/Auscultation 07/08/17 08:46 98.6 111 18 118/92 (101) 95 07/08/17 05:05 98.1 120 18 122/82 (95) 95 07/07/17 23:28 98.0 110 18 97/55 (69) 95 07/07/17 19:51 98.1 106 18 121/88 (99) 96 07/07/17 17:43 99.8 99 18 123/90 (101) 98 Exam Comments alert, oriented, speech normal Cn intact MOTOR 5/5 BUE and BLE Objective Micro and Labs Laboratory Tests Test 07/08/17 04:39 07/08/17 10:15 Phenytoin (Dilantin) Level 8.0 White Blood Count 13.1 Red Blood Count 4.22 Hemoglobin 13.4 Hematocrit 39.4 Mean Corpuscular Volume 93.6 Mean Corpuscular Hemoglobin 31.8 Mean Corpuscular Hemoglobin Concent 34.0 Red Cell Distribution Width 13.5 Platelet Count 278 Mean Platelet Volume 8.6 Neutrophils (%) (Auto) 78.0 Lymphocytes (%) (Auto) 10.1 Monocytes (%) (Auto) 11.4 Eosinophils (%) (Auto) 0.1 Basophils (%) (Auto) 0.4 Neutrophils # (Auto) 10.3 Lymphocytes # (Auto) 1.3 Monocytes # (Auto) 1.5 Eosinophils # (Auto) 0.0 Basophils # (Auto) 0.1 CBC Comment DIFF FINAL Differential Comment Blood Urea Nitrogen 7 Creatinine 0.70 Random Glucose 115 Total Protein 7.6 Albumin 3.5 Calcium Level 9.0 Alkaline Phosphatase 117 Aspartate Amino Transf (AST/SGOT) 31 Alanine Aminotransferase (ALT/SGPT) 36 Total Bilirubin 0.4 Sodium Level 137 Potassium Level 4.4 Chloride Level 102 Carbon Dioxide Level 28.8 Anion Gap 6 Estimat Glomerular Filtration Rate 90 Spike Garcia PhD Jul 08, 2017 15:07
[2017-07-08] MEDS ORDERED: LISI-519 PO (15:31)
[2017-07-08] MEDS ORDERED: DILA100C PO (15:31)
[2017-07-08] MEDS ORDERED: CLIN150 PO (15:31)
--- NOTE | 2017-07-08 15:40 | HHI.DS ---
Discharge Summary Admission Date Jul 06, 2017 at 15:12 Discharge Date: Jul 08, 2017 Admitting Diagnosis recurrent seizure (1) Recurrent seizures ICD Code: G40.909 - Epilepsy, unspecified, not intractable, without status epilepticus Diagnosis: Principal Procedures EEG. No invasive procedures. Brief History - From Admission patient is a 46 y/o female with history of seizure which was reportedly diagnosed about a year ago presented to ER with recurrent seizures. she's under the care of . she says that she was started on Briviact - however her seizure could not be controlled therefore the dose was increased two days ago. she says that she's having few seizures everyday. seizure was described as grand-mal. she says that she has some ' aura' before the seizures; ' she gets confused and her words are not coming out'. she had another episode of seizure prior to this presentation. she says that she talked to her neurologist today and was advised to come to [facility].she doesn't report any urinary incontinence or tongue-biting but complaining of some headache. of note she says that she was seen at [facility] a few days ago for the same reason; she says that she had a CT head done at the time but she didn't stay for further evaluation. CBC/BMP: 07/08/17 1015 07/08/17 1015 Significant Findings Laboratory Tests Test 07/06/17 12:20 07/06/17 12:30 07/07/17 13:08 07/08/17 04:39 Red Blood Count 3.98 MIL/MM3 (4.00-5.30) Monocytes (%) (Auto) 12.4 % (0.0-8.0) Eosinophils (%) (Auto) 4.9 % (0.0-4.0) Monocytes # (Auto) 1.2 TH/MM3 (0-0.9) Eosinophils # (Auto) 0.5 TH/MM3 (0-0.4) Calcium Level 8.3 MG/DL (8.5-10.1) Estimat Glomerular Filtration Rate 67 ML/MIN (>89) Urine Mucus MANY /lpf (OCC) Phenytoin (Dilantin) Level 8.0 MCG/ML (10.0-20.0) Test 07/08/17 10:15 White Blood Count 13.1 TH/MM3 (4.0-11.0) Neutrophils (%) (Auto) 78.0 % (16.0-70.0) Monocytes (%) (Auto) 11.4 % (0.0-8.0) Neutrophils # (Auto) 10.3 TH/MM3 (1.8-7.7) Monocytes # (Auto) 1.5 TH/MM3 (0-0.9) Random Glucose 115 MG/DL (74-106) Imaging Last Impressions Brain MRI 07/07/17 0000 Signed Impressions: Service Date/Time: Friday, July 07, 2017 15:40 - CONCLUSION: 1. No acute findings. Leo Laurent MD Hospital Course Patient presented with recurrent seizure. Brain imaging with no acute findings. ECG negative. Neurology consulted and changed medications. Strong suspicion of pseudoseizures versus less likely seizures. She'll follow-up with neurology as outpatient for repeat Dilantin level. Patient also reported right lower jaw pain, with white count increasing the 13, complaints of tooth pain. No abscess on exam. Patient was started on clindamycin, instructed to see a dentist within several days. Blood pressure medication decreased due to low relative blood pressure. For problem-based summary from most recent progress note, please see below. //recurrent seizures- states that she's been on Briviact with no improvement. seizure precautions/ ativan as needed/ obtain EEG and consult neurology. obtain the report of CT head that was done at [facility] few days ago. = Continue Ativan as needed for seizures. Patient with multiple negative EEGs in the past. I question these are real seizures versus pseudoseizures. Have discussed with Dr. Garcia, who will see the patient. = 07/08. EEG negative. Started on Cerebyx. Psychiatry consult pending. Appreciate psychiatry and neurology assistance. //hypertension. Blood pressure low with systolics in the 90s. Will decrease lisinopril 5 mg only once a day. Continue to monitor. = Blood pressure acceptable. Continue to monitor //Right lower jaw tooth infection. We'll order antibiotics. Recommend close follow-up with dentist as outpatient. //asthma with no exacerbation. Continue home meds. //chronic neck/back pain; continue pain control-avoid caffeine. Patient says that aspirin and Tylenol do not help, she needs caffeine. We'll continue to avoid caffeine. Avoid excessive narcotics with low blood pressure. Discharge Planning pending neurology clearance. Psychiatry consult pending. Pt Condition on Discharge: Good Discharge Disposition: Discharge Home Discharge Time: > 30 minutes Discharge Instructions DIET: Follow Instructions for: As Tolerated, No Restrictions Activities you can perform: Regular-No Restrictions, See Additionl Instruction Activities to Avoid: Driving Other Activity Instructions: No Driving until cleared by neurologist. Follow up Referrals: Neurology - 2 Weeks with Tamera Rondon M.d. PCP Follow-up - 1 Week with Sarah Sandoval D.o. New Orders: CBC WITH DIFF - 3-5 Days Dental - 2-3 Days DILANTIN (FREE) - 2 Weeks New Medications: Phenytoin Extended (Dilantin) 100 Mg Cap 200 MG PO BID for Control Seizures, #180 CAP 0 Refills Clindamycin (Cleocin) 150 Mg Cap 300 MG PO Q6HR for Infection for 14 Days, CAP Please see your dentist this week, even if pain subsides Lisinopril (Lisinopril) 5 Mg Tab 5 MG PO DAILY for Blood Pressure Management for 30 Days, #30 TAB Continued Medications: Albuterol 18 GM Inh (Ventolin Hfa 18 GM Inh) 90 Mcg/Act Aer 2 PUFF INH Q4-6H PRN for SHORTNESS OF BREATH, #1 INHALER 0 Refills Diazepam (Valium) 10 Mg Tab 10 MG PO BID PRN for ANXIETY AND/OR AGITATION, TAB 0 Refills Montelukast (Singulair) 10 Mg Tab 10 MG PO HS for Allergies, TAB 0 Refills Ondansetron Odt (Zofran Odt) 8 Mg Tab 8 MG SL Q12HR for Nausea/Vomiting, TAB 0 Refills Pregabalin (Lyrica) 150 Mg Cap 150 MG PO TID, #90 CAP 0 Refills Pregabalin (Lyrica) 200 Mg Cap 200 MG PO TID, #90 CAP 0 Refills Promethazine Supp (Phenergan Supp) 25 Mg Supp 25 MG RECTAL Q4H PRN for NAUSEA OR VOMITING, SUPP 0 Refills Propranolol (Propranolol) 10 Mg Tab 10 MG PO DAILY for Blood Pressure Management, TAB 0 Refills Discontinued Medications: Azithromycin (Azithromycin) 250 Mg Tab 250 MG PO DIRECTED for Infection, #6 TAB 0 Refills Take 2 tabs (500 mg) on day 1 then 1 tab daily x 4 days. Brivaracetam (Briviact) 100 Mg Tab 100 MG PO BID for Control Seizures, TAB 0 Refills Etrzbpgcsn-Kesmyaxjltgfs-Fevceyoj (Fioricet) 50-300-40 Mg Cap 1 CAP PO Q4H PRN for HEADACHE, CAP 0 Refills Dicyclomine (Bentyl) 10 Mg Cap 10 MG PO QID for Bowel Management, CAP 0 Refills Lisinopril (Lisinopril) 10 Mg Tab 10 MG PO BID for Blood Pressure Management, #30 TAB 0 Refills Morphine ER (Morphine ER) 60 Mg Tab 60 MG PO TID for Pain Management, TAB 0 Refills Prednisone (Prednisone) 20 Mg Tab 20 MG PO BID for 5 Days, #10 TAB 0 Refills Tizanidine (Tizanidine) 4 Mg Cap 4 MG PO TID for Muscle Spasm, CAP 0 Refills Mendoza Kelly MD Jul 08, 2017 15:40
[2017-07-08] MEDS ORDERED: PHENYTOIN SODIUM 100 MG CAP PO SCH (21:00)
== END 2017-07-08 19:49 | disposition home or self-care (01) ==
LOC: NEPE 11:54 → NEDA 15:12 → NEPFCDU 16:59
PROVIDERS: ADMIT Internal Medicine; ATTEND Internal Medicine
DX: G40.409 Other generalized epilepsy and epileptic syndromes, not intractable, without status epilepticus (principal); I10 Essential (primary) hypertension; K04.7 Periapical abscess without sinus; J45.909 Unspecified asthma, uncomplicated; M54.9 Dorsalgia, unspecified; E80.20 Unspecified porphyria; M19.90 Unspecified osteoarthritis, unspecified site; F41.9 Anxiety disorder, unspecified; F32.9 Major depressive disorder, single episode, unspecified; Z86.73 Personal history of transient ischemic attack (TIA), and cerebral infarction without residual deficits; K21.9 Gastro-esophageal reflux disease without esophagitis; K44.9 Diaphragmatic hernia without obstruction or gangrene; I25.2 Old myocardial infarction; G43.909 Migraine, unspecified, not intractable, without status migrainosus; Z79.899 Other long term (current) drug therapy
CPT/HCPCS: 70553; 80053; 80185; 80307; 81001; 84443; 84702; 85025; 95819; 96361; 96365; 96374; 96375; 96376; 99285; A9579; G0378; J1885; J2060; J2405; J7030; Q2009

== ENCOUNTER 2017-08-29 09:05 | Emergency (ER) | payer MEDICAID, MEDICARE ==
[~2017-08-29] VITALS: Ht 165.1 cm; Wt 54.5 kg
[~2017-08-29 09:05] MED LIST changes: -AZIT250T3 PO; -BUTA1CAP PO; +CLIN150 PO; -DICY10 PO; +DILA100C PO; +LISI-519 PO; -LISI10TA3 PO; -MORP1TAB26 PO; -PRED20 PO; -TIZA4CAP3 PO
[2017-08-29 09:07] VITALS: BP 164/78; PULSE 91; RESP 20; TEMP 99.3; O2SAT 100
[2017-08-29] MEDS ORDERED: MORP1TAB25 PO (09:32)
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
[2017-08-29] MEDS ORDERED: DOXY100C PO (11:06)
== END 2017-08-29 11:15 | disposition home or self-care (01) ==
LOC: NEPK 09:05
DX: S02.2XXA Fracture of nasal bones, initial encounter for closed fracture (principal); Y04.0XXA Assault by unarmed brawl or fight, initial encounter
CPT/HCPCS: 70450; 70486; 84703; 99285